=== PATIENT | male | born 1970 | race Two or more races ===

== ENCOUNTER 2023-03-22 18:14 | Inpatient (IN) | payer OTHER ==
[2023-03-22 19:01] VITALS: BMI 27.4
[2023-03-22] MEDS ORDERED: BENZOCAINE/MENTHOL (CHLORASEPTIC ) LOZENGE MM PRN (21:02)
[2023-03-22] MEDS ORDERED: BENZONATATE 200 MG CAPSULE PO PRN (21:02)
[2023-03-22] MEDS ORDERED: DICYCLOMINE HCL 10 MG CAPSULE PO PRN (21:02)
[2023-03-22] MEDS ORDERED: P-EPHED 60MG/TRIPROLIDI 2.5MG TABLET PO PRN (21:02)
[2023-03-22] MEDS ORDERED: MELATONIN 5 MG TABLETS PO PRN (21:02)
[2023-03-22] MEDS ORDERED: LOPERAMIDE HCL 2 MG CAPSULE PO PRN (21:02)
[2023-03-22] MEDS ORDERED: ONDANSETRON *ODT* 4 MG TABLET SL PRN (21:02)
[2023-03-22] MEDS ORDERED: MAGNESIUM HYDROX 2400MG/30ML ORAL SUSPENSION 30 ML CUP PO PRN (21:02)
[2023-03-22] MEDS ORDERED: ACETAMINOPHEN 325 MG TABLET (FP) PO PRN ×2 (21:02)
[2023-03-22] MEDS ORDERED: BISMUTH SUBSALICYLATE 524 MG/30 ML PO PRN (21:02)
[2023-03-22] MEDS ORDERED: POLYETHYLENE GLYCOL (HEALTHYLAX) 3350 17 GM PACKET PO PRN (21:02)
[2023-03-22] MEDS ORDERED: guaiFENesin 600 MG TABLET.ER (FP) PO PRN (21:02)
[2023-03-22] MEDS: GABAPENTIN 300 MG CAPSULE PO SCH (23:45)
[2023-03-22] MEDS: amLODIPine BESYLATE 5 MG TABLET (FP) PO SCH (23:50)
[2023-03-23] MEDS: THIAMINE HCL 100 MG TABLET (FP) PO SCH ×2 (07:22→21:17)
[2023-03-23] MEDS: ASPIRIN COATED 81 MG TABLET.EC PO SCH ×2 (07:23→09:40)
[2023-03-23] MEDS ORDERED: amLODIPine BESYLATE 5 MG TABLET (FP) ONE (07:26)
[2023-03-23] MEDS ORDERED: GABAPENTIN 100 MG CAPSULE ONE (07:26)
[2023-03-23] MEDS: GABAPENTIN 300 MG CAPSULE PO SCH ×3 (07:30→21:18)
[2023-03-23] MEDS: ATORVASTATIN CA 10 MG TABLET (FP) PO SCH ×2 (07:31→21:18)
[2023-03-23] MEDS ORDERED: ASPIRIN 81 MG CHEWABLE TABLETS ONE (09:33)
[2023-03-23] MEDS ORDERED: PRENATAL VITAMINS W/ FOLIC ACID TABLET (FP) PO ONE (09:34)
[2023-03-23] MEDS: PRENATAL VITAMINS W/ FOLIC ACID TABLET (FP) PO SCH (09:39)
[2023-03-23] MEDS: FAMOTIDINE 20 MG TABLET PO SCH (09:40)
[2023-03-23] MEDS: amLODIPine BESYLATE 5 MG TABLET (FP) PO SCH (09:40)
[2023-03-23] MEDS: metoPROLOL SUCCINATE 25 MG TAB.SR.24H (FP) PO SCH (09:40)
[2023-03-23] MEDS: IBUPROFEN 400 MG TABLET (FP) PO PRN (17:10)
[2023-03-23 17:28] LABS: POTASSIUM 4.8 mmol/L (3.5-5.1)
[2023-03-23 17:30] LABS: BLOOD UREA NITROGEN 21.5 mg/dL (7-18); CALCIUM 10.1 mg/dL (8.5-10.1)
[2023-03-23 17:34] LABS: CREATININE 1.4 mg/dL (0.55-1.3)
[2023-03-23 17:35] LABS: BILIRUBIN,TOTAL 0.4 mg/dL (0.2-1)
[2023-03-23 17:38] LABS: HEMATOCRIT 39.5 % (35.4-49); HEMOGLOBIN 12.9 GM/dL (11.7-16.9); MCHC 32.8 g/dl (32.0-35.9); MEAN CELL VOLUME 94.6 fl (80-96); MEAN PLT VOLUME 8.5 fl (7.5-11.1); PLATELET COUNT 398 10^3/uL (134-434); RBC 4.17 M/mm3 (4.00-5.60); RDW 13.9 % (11.9-15.9); WHITE BLOOD COUNT 8.4 K/mm3 (4.0-10.0)
[2023-03-23] MEDS: traZODone HCL 50 MG TABLET (FP) PO SCH (21:18)
[2023-03-24] MEDS: GABAPENTIN 300 MG CAPSULE PO SCH ×3 (06:05→21:46)
[2023-03-24] MEDS: hydrOXYzine PAMOATE 25 MG CAPSULE (FP) PO PRN (06:05)
[2023-03-24] MEDS: IBUPROFEN 400 MG TABLET (FP) PO PRN (07:53)
[2023-03-24] MEDS: FAMOTIDINE 20 MG TABLET PO SCH (09:48)
[2023-03-24] MEDS: PRENATAL VITAMINS W/ FOLIC ACID TABLET (FP) PO SCH (09:48)
[2023-03-24] MEDS: ASPIRIN COATED 81 MG TABLET.EC PO SCH (09:48)
[2023-03-24] MEDS: amLODIPine BESYLATE 5 MG TABLET (FP) PO SCH (09:48)
[2023-03-24] MEDS: metoPROLOL SUCCINATE 25 MG TAB.SR.24H (FP) PO SCH (09:48)
[2023-03-24] MEDS: traZODone HCL 50 MG TABLET (FP) PO SCH (21:46)
[2023-03-24] MEDS: THIAMINE HCL 100 MG TABLET (FP) PO SCH (21:46)
[2023-03-24] MEDS: ATORVASTATIN CA 10 MG TABLET (FP) PO SCH (21:47)
[2023-03-25] MEDS: hydrOXYzine PAMOATE 25 MG CAPSULE (FP) PO PRN (05:54)
[2023-03-25] MEDS: IBUPROFEN 400 MG TABLET (FP) PO PRN (05:55)
[2023-03-25] MEDS: GABAPENTIN 300 MG CAPSULE PO SCH ×3 (05:57→21:05)
[2023-03-25] MEDS: FAMOTIDINE 20 MG TABLET PO SCH (09:53)
[2023-03-25] MEDS: ASPIRIN COATED 81 MG TABLET.EC PO SCH (09:53)
[2023-03-25] MEDS: PRENATAL VITAMINS W/ FOLIC ACID TABLET (FP) PO SCH (09:53)
[2023-03-25] MEDS: metoPROLOL SUCCINATE 25 MG TAB.SR.24H (FP) PO SCH (09:53)
[2023-03-25] MEDS: amLODIPine BESYLATE 5 MG TABLET (FP) PO SCH (09:54)
[2023-03-25] MEDS: MAG HYDROX/AL HYDROX/SIMETH 30 ML UNIT-DOSE CUP PO PRN (12:13)
[2023-03-25] MEDS: traZODone HCL 50 MG TABLET (FP) PO SCH (21:05)
[2023-03-25] MEDS: ATORVASTATIN CA 10 MG TABLET (FP) PO SCH (21:05)
[2023-03-25] MEDS: THIAMINE HCL 100 MG TABLET (FP) PO SCH (21:05)
[2023-03-26] MEDS: hydrOXYzine PAMOATE 25 MG CAPSULE (FP) PO PRN (06:19)
[2023-03-26] MEDS: GABAPENTIN 300 MG CAPSULE PO SCH ×3 (06:19→21:15)
[2023-03-26] MEDS: PRENATAL VITAMINS W/ FOLIC ACID TABLET (FP) PO SCH (10:04)
[2023-03-26] MEDS: ASPIRIN COATED 81 MG TABLET.EC PO SCH (10:05)
[2023-03-26] MEDS: FAMOTIDINE 20 MG TABLET PO SCH (10:05)
[2023-03-26] MEDS: amLODIPine BESYLATE 5 MG TABLET (FP) PO SCH (10:05)
[2023-03-26] MEDS: metoPROLOL SUCCINATE 25 MG TAB.SR.24H (FP) PO SCH (10:05)
[2023-03-26] MEDS: MAG HYDROX/AL HYDROX/SIMETH 30 ML UNIT-DOSE CUP PO PRN (10:08)
[2023-03-26] MEDS ORDERED: METOPROLOL TARTRATE 25 MG TABLET (FP) PO SCH (10:30)
[2023-03-26] MEDS: ATORVASTATIN CA 10 MG TABLET (FP) PO SCH (21:15)
[2023-03-26] MEDS: THIAMINE HCL 100 MG TABLET (FP) PO SCH (21:15)
[2023-03-26] MEDS: traZODone HCL 50 MG TABLET (FP) PO SCH (21:15)
[2023-03-26] MEDS: METOPROLOL TARTRATE 25 MG TABLET (FP) PO SCH (21:30)
[2023-03-27] MEDS: GABAPENTIN 300 MG CAPSULE PO SCH ×3 (06:05→21:21)
[2023-03-27] MEDS: ASPIRIN COATED 81 MG TABLET.EC PO SCH (10:44)
[2023-03-27] MEDS: amLODIPine BESYLATE 5 MG TABLET (FP) PO SCH (10:44)
[2023-03-27] MEDS: FAMOTIDINE 20 MG TABLET PO SCH (10:45)
[2023-03-27] MEDS: PRENATAL VITAMINS W/ FOLIC ACID TABLET (FP) PO SCH (10:45)
[2023-03-27] MEDS: METOPROLOL TARTRATE 25 MG TABLET (FP) PO SCH ×2 (10:45→21:21)
[2023-03-27] MEDS: traZODone HCL 50 MG TABLET (FP) PO SCH (21:21)
[2023-03-27] MEDS: ATORVASTATIN CA 10 MG TABLET (FP) PO SCH (21:21)
[2023-03-27] MEDS: THIAMINE HCL 100 MG TABLET (FP) PO SCH (21:21)
[2023-03-28] MEDS: hydrOXYzine PAMOATE 25 MG CAPSULE (FP) PO PRN (05:58)
[2023-03-28] MEDS: GABAPENTIN 300 MG CAPSULE PO SCH ×3 (05:58→21:15)
[2023-03-28] MEDS: ASPIRIN COATED 81 MG TABLET.EC PO SCH (09:48)
[2023-03-28] MEDS: PRENATAL VITAMINS W/ FOLIC ACID TABLET (FP) PO SCH (09:48)
[2023-03-28] MEDS: amLODIPine BESYLATE 5 MG TABLET (FP) PO SCH (09:48)
[2023-03-28] MEDS: FAMOTIDINE 20 MG TABLET PO SCH (09:48)
[2023-03-28] MEDS: METOPROLOL TARTRATE 25 MG TABLET (FP) PO SCH ×2 (09:48→21:15)
[2023-03-28] MEDS: traZODone HCL 50 MG TABLET (FP) PO SCH (21:15)
[2023-03-28] MEDS: ATORVASTATIN CA 10 MG TABLET (FP) PO SCH (21:15)
[2023-03-28] MEDS: THIAMINE HCL 100 MG TABLET (FP) PO SCH (21:15)
[2023-03-29] MEDS: GABAPENTIN 300 MG CAPSULE PO SCH ×3 (05:51→21:27)
[2023-03-29] MEDS: ASPIRIN COATED 81 MG TABLET.EC PO SCH (10:21)
[2023-03-29] MEDS: FAMOTIDINE 20 MG TABLET PO SCH (10:21)
[2023-03-29] MEDS: PRENATAL VITAMINS W/ FOLIC ACID TABLET (FP) PO SCH (10:21)
[2023-03-29] MEDS: amLODIPine BESYLATE 5 MG TABLET (FP) PO SCH (10:22)
[2023-03-29] MEDS: METOPROLOL TARTRATE 25 MG TABLET (FP) PO SCH ×2 (10:22→21:27)
[2023-03-29] MEDS: THIAMINE HCL 100 MG TABLET (FP) PO SCH (21:26)
[2023-03-29] MEDS: traZODone HCL 50 MG TABLET (FP) PO SCH (21:27)
[2023-03-29] MEDS: IBUPROFEN 400 MG TABLET (FP) PO PRN (21:27)
[2023-03-29] MEDS: ATORVASTATIN CA 10 MG TABLET (FP) PO SCH (21:27)
[2023-03-30] MEDS: IBUPROFEN 400 MG TABLET (FP) PO PRN (06:12)
[2023-03-30] MEDS: GABAPENTIN 300 MG CAPSULE PO SCH ×3 (06:12→21:26)
[2023-03-30] MEDS: ASPIRIN COATED 81 MG TABLET.EC PO SCH (09:46)
[2023-03-30] MEDS: METOPROLOL TARTRATE 25 MG TABLET (FP) PO SCH ×2 (09:46→21:26)
[2023-03-30] MEDS: PRENATAL VITAMINS W/ FOLIC ACID TABLET (FP) PO SCH (09:46)
[2023-03-30] MEDS: FAMOTIDINE 20 MG TABLET PO SCH (09:46)
[2023-03-30] MEDS: amLODIPine BESYLATE 5 MG TABLET (FP) PO SCH (09:46)
[2023-03-30] MEDS: hydrOXYzine PAMOATE 25 MG CAPSULE (FP) PO PRN (13:21)
[2023-03-30] MEDS: ATORVASTATIN CA 10 MG TABLET (FP) PO SCH (21:26)
[2023-03-30] MEDS: traZODone HCL 50 MG TABLET (FP) PO SCH (21:26)
[2023-03-30] MEDS: THIAMINE HCL 100 MG TABLET (FP) PO SCH (21:27)
[2023-03-30] MEDS: MAG HYDROX/AL HYDROX/SIMETH 30 ML UNIT-DOSE CUP PO PRN (21:27)
[2023-03-31] MEDS: GABAPENTIN 300 MG CAPSULE PO SCH ×3 (05:52→21:14)
[2023-03-31] MEDS: hydrOXYzine PAMOATE 25 MG CAPSULE (FP) PO PRN (05:53)
[2023-03-31] MEDS: ASPIRIN COATED 81 MG TABLET.EC PO SCH (09:27)
[2023-03-31] MEDS: METOPROLOL TARTRATE 25 MG TABLET (FP) PO SCH ×2 (09:27→21:14)
[2023-03-31] MEDS: amLODIPine BESYLATE 5 MG TABLET (FP) PO SCH (09:27)
[2023-03-31] MEDS: PRENATAL VITAMINS W/ FOLIC ACID TABLET (FP) PO SCH (09:27)
[2023-03-31] MEDS: FAMOTIDINE 20 MG TABLET PO SCH (09:28)
[2023-03-31] MEDS: ATORVASTATIN CA 10 MG TABLET (FP) PO SCH (21:14)
[2023-03-31] MEDS: THIAMINE HCL 100 MG TABLET (FP) PO SCH (21:14)
[2023-03-31] MEDS: traZODone HCL 50 MG TABLET (FP) PO SCH (21:14)
[2023-04-01] MEDS: GABAPENTIN 300 MG CAPSULE PO SCH ×3 (06:04→21:28)
[2023-04-01] MEDS: hydrOXYzine PAMOATE 25 MG CAPSULE (FP) PO PRN (06:04)
[2023-04-01] MEDS: IBUPROFEN 400 MG TABLET (FP) PO PRN (06:25)
[2023-04-01] MEDS: ASPIRIN COATED 81 MG TABLET.EC PO SCH (09:54)
[2023-04-01] MEDS: amLODIPine BESYLATE 5 MG TABLET (FP) PO SCH (09:54)
[2023-04-01] MEDS: PRENATAL VITAMINS W/ FOLIC ACID TABLET (FP) PO SCH (09:54)
[2023-04-01] MEDS: METOPROLOL TARTRATE 25 MG TABLET (FP) PO SCH ×2 (09:54→21:28)
[2023-04-01] MEDS: FAMOTIDINE 20 MG TABLET PO SCH (09:54)
[2023-04-01] MEDS: MAG HYDROX/AL HYDROX/SIMETH 30 ML UNIT-DOSE CUP PO PRN (13:40)
[2023-04-01] MEDS: THIAMINE HCL 100 MG TABLET (FP) PO SCH (21:27)
[2023-04-01] MEDS: ATORVASTATIN CA 10 MG TABLET (FP) PO SCH (21:27)
[2023-04-01] MEDS: traZODone HCL 50 MG TABLET (FP) PO SCH (21:28)
[2023-04-02] MEDS: GABAPENTIN 300 MG CAPSULE PO SCH ×3 (06:19→21:31)
[2023-04-02] MEDS: hydrOXYzine PAMOATE 25 MG CAPSULE (FP) PO PRN (06:19)
[2023-04-02] MEDS: IBUPROFEN 400 MG TABLET (FP) PO PRN ×2 (06:19→13:22)
[2023-04-02] MEDS: FAMOTIDINE 20 MG TABLET PO SCH (09:58)
[2023-04-02] MEDS: ASPIRIN COATED 81 MG TABLET.EC PO SCH (09:58)
[2023-04-02] MEDS: PRENATAL VITAMINS W/ FOLIC ACID TABLET (FP) PO SCH (09:58)
[2023-04-02] MEDS: amLODIPine BESYLATE 5 MG TABLET (FP) PO SCH (09:58)
[2023-04-02] MEDS: METOPROLOL TARTRATE 25 MG TABLET (FP) PO SCH ×2 (09:58→21:31)
[2023-04-02] MEDS: ATORVASTATIN CA 10 MG TABLET (FP) PO SCH (21:31)
[2023-04-02] MEDS: traZODone HCL 50 MG TABLET (FP) PO SCH (21:31)
[2023-04-02] MEDS: THIAMINE HCL 100 MG TABLET (FP) PO SCH (21:31)
[2023-04-03] MEDS: GABAPENTIN 300 MG CAPSULE PO SCH ×3 (06:04→21:48)
[2023-04-03] MEDS: hydrOXYzine PAMOATE 25 MG CAPSULE (FP) PO PRN (06:04)
[2023-04-03] MEDS: IBUPROFEN 400 MG TABLET (FP) PO PRN (06:05)
[2023-04-03 07:29] VITALS: RESP 18
[2023-04-03] MEDS: FAMOTIDINE 20 MG TABLET PO SCH (09:57)
[2023-04-03] MEDS: METOPROLOL TARTRATE 25 MG TABLET (FP) PO SCH ×2 (09:57→21:48)
[2023-04-03] MEDS: amLODIPine BESYLATE 5 MG TABLET (FP) PO SCH (09:57)
[2023-04-03] MEDS: PRENATAL VITAMINS W/ FOLIC ACID TABLET (FP) PO SCH (09:57)
[2023-04-03] MEDS: ASPIRIN COATED 81 MG TABLET.EC PO SCH (09:57)
[2023-04-03] MEDS: ATORVASTATIN CA 10 MG TABLET (FP) PO SCH (21:48)
[2023-04-03] MEDS: traZODone HCL 50 MG TABLET (FP) PO SCH (21:48)
[2023-04-03] MEDS: THIAMINE HCL 100 MG TABLET (FP) PO SCH (21:49)
[2023-04-04] MEDS: GABAPENTIN 300 MG CAPSULE PO SCH ×3 (06:12→21:19)
[2023-04-04] MEDS: MAG HYDROX/AL HYDROX/SIMETH 30 ML UNIT-DOSE CUP PO PRN (06:50)
[2023-04-04] MEDS: ASPIRIN COATED 81 MG TABLET.EC PO SCH (10:08)
[2023-04-04] MEDS: PRENATAL VITAMINS W/ FOLIC ACID TABLET (FP) PO SCH (10:08)
[2023-04-04] MEDS: FAMOTIDINE 20 MG TABLET PO SCH (10:08)
[2023-04-04] MEDS: METOPROLOL TARTRATE 25 MG TABLET (FP) PO SCH ×2 (10:08→21:19)
[2023-04-04] MEDS: amLODIPine BESYLATE 5 MG TABLET (FP) PO SCH (10:08)
[2023-04-04] MEDS: ATORVASTATIN CA 10 MG TABLET (FP) PO SCH (21:19)
[2023-04-04] MEDS: THIAMINE HCL 100 MG TABLET (FP) PO SCH (21:19)
[2023-04-04] MEDS: traZODone HCL 50 MG TABLET (FP) PO SCH (21:19)
[2023-04-05] MEDS: MAG HYDROX/AL HYDROX/SIMETH 30 ML UNIT-DOSE CUP PO PRN (06:21)
[2023-04-05] MEDS: GABAPENTIN 300 MG CAPSULE PO SCH ×3 (06:21→21:10)
[2023-04-05] MEDS: METOPROLOL TARTRATE 25 MG TABLET (FP) PO SCH ×2 (10:08→21:10)
[2023-04-05] MEDS: ASPIRIN COATED 81 MG TABLET.EC PO SCH (10:08)
[2023-04-05] MEDS: FAMOTIDINE 20 MG TABLET PO SCH (10:08)
[2023-04-05] MEDS: amLODIPine BESYLATE 5 MG TABLET (FP) PO SCH (10:08)
[2023-04-05] MEDS: PRENATAL VITAMINS W/ FOLIC ACID TABLET (FP) PO SCH (10:08)
[2023-04-05] MEDS: THIAMINE HCL 100 MG TABLET (FP) PO SCH (21:10)
[2023-04-05] MEDS: ATORVASTATIN CA 10 MG TABLET (FP) PO SCH (21:10)
[2023-04-05] MEDS: traZODone HCL 50 MG TABLET (FP) PO SCH (21:11)
[2023-04-06] MEDS: GABAPENTIN 300 MG CAPSULE PO SCH ×3 (05:42→21:18)
[2023-04-06] MEDS: hydrOXYzine PAMOATE 25 MG CAPSULE (FP) PO PRN (05:42)
[2023-04-06] MEDS: METOPROLOL TARTRATE 25 MG TABLET (FP) PO SCH ×2 (10:14→21:18)
[2023-04-06] MEDS: ASPIRIN COATED 81 MG TABLET.EC PO SCH (10:14)
[2023-04-06] MEDS: PRENATAL VITAMINS W/ FOLIC ACID TABLET (FP) PO SCH (10:14)
[2023-04-06] MEDS: FAMOTIDINE 20 MG TABLET PO SCH (10:14)
[2023-04-06] MEDS: amLODIPine BESYLATE 5 MG TABLET (FP) PO SCH (10:14)
[2023-04-06] MEDS: IBUPROFEN 400 MG TABLET (FP) PO PRN (10:16)
[2023-04-06] MEDS: ATORVASTATIN CA 10 MG TABLET (FP) PO SCH (21:18)
[2023-04-06] MEDS: THIAMINE HCL 100 MG TABLET (FP) PO SCH (21:18)
[2023-04-06] MEDS: traZODone HCL 50 MG TABLET (FP) PO SCH (21:18)
[2023-04-07] MEDS: GABAPENTIN 300 MG CAPSULE PO SCH ×3 (06:12→21:02)
[2023-04-07] MEDS: FAMOTIDINE 20 MG TABLET PO SCH (10:01)
[2023-04-07] MEDS: PRENATAL VITAMINS W/ FOLIC ACID TABLET (FP) PO SCH (10:01)
[2023-04-07] MEDS: amLODIPine BESYLATE 5 MG TABLET (FP) PO SCH (10:02)
[2023-04-07] MEDS: METOPROLOL TARTRATE 25 MG TABLET (FP) PO SCH ×2 (10:02→21:02)
[2023-04-07] MEDS: ASPIRIN COATED 81 MG TABLET.EC PO SCH (10:02)
[2023-04-07] MEDS: IBUPROFEN 400 MG TABLET (FP) PO PRN (13:07)
[2023-04-07] MEDS: traZODone HCL 50 MG TABLET (FP) PO SCH (21:02)
[2023-04-07] MEDS: ATORVASTATIN CA 10 MG TABLET (FP) PO SCH (21:02)
[2023-04-07] MEDS: THIAMINE HCL 100 MG TABLET (FP) PO SCH (21:03)
[2023-04-08] MEDS: GABAPENTIN 300 MG CAPSULE PO SCH ×3 (06:01→21:19)
[2023-04-08] MEDS: IBUPROFEN 400 MG TABLET (FP) PO PRN (06:03)
[2023-04-08] MEDS: amLODIPine BESYLATE 5 MG TABLET (FP) PO SCH (10:12)
[2023-04-08] MEDS: PRENATAL VITAMINS W/ FOLIC ACID TABLET (FP) PO SCH (10:12)
[2023-04-08] MEDS: METOPROLOL TARTRATE 25 MG TABLET (FP) PO SCH ×2 (10:12→21:19)
[2023-04-08] MEDS: ASPIRIN COATED 81 MG TABLET.EC PO SCH (10:12)
[2023-04-08] MEDS: FAMOTIDINE 20 MG TABLET PO SCH (10:12)
[2023-04-08] MEDS: MAG HYDROX/AL HYDROX/SIMETH 30 ML UNIT-DOSE CUP PO PRN (10:13)
[2023-04-08] MEDS: THIAMINE HCL 100 MG TABLET (FP) PO SCH (21:18)
[2023-04-08] MEDS: ATORVASTATIN CA 10 MG TABLET (FP) PO SCH (21:19)
[2023-04-08] MEDS: traZODone HCL 50 MG TABLET (FP) PO SCH (21:19)
[2023-04-09] MEDS: IBUPROFEN 400 MG TABLET (FP) PO PRN (06:17)
[2023-04-09] MEDS: GABAPENTIN 300 MG CAPSULE PO SCH ×3 (06:17→21:16)
[2023-04-09] MEDS: hydrOXYzine PAMOATE 25 MG CAPSULE (FP) PO PRN (06:19)
[2023-04-09] MEDS: ASPIRIN COATED 81 MG TABLET.EC PO SCH (10:07)
[2023-04-09] MEDS: amLODIPine BESYLATE 5 MG TABLET (FP) PO SCH (10:07)
[2023-04-09] MEDS: FAMOTIDINE 20 MG TABLET PO SCH (10:07)
[2023-04-09] MEDS: METOPROLOL TARTRATE 25 MG TABLET (FP) PO SCH ×2 (10:07→21:16)
[2023-04-09] MEDS: PRENATAL VITAMINS W/ FOLIC ACID TABLET (FP) PO SCH (10:07)
[2023-04-09] MEDS: LIDOCAINE 5% TOPICAL PATCH TP SCH (11:04)
[2023-04-09] MEDS: amLODIPine BESYLATE 10 MG TABLET (FP) PO SCH (11:04)
[2023-04-09] MEDS: NICOTINE 14 MG/24 HOURS TOPICAL PATCH TD PRN (11:06)
[2023-04-09] MEDS: ATORVASTATIN CA 10 MG TABLET (FP) PO SCH (21:16)
[2023-04-09] MEDS: traZODone HCL 50 MG TABLET (FP) PO SCH (21:16)
[2023-04-09] MEDS: THIAMINE HCL 100 MG TABLET (FP) PO SCH (21:17)
[2023-04-09] MEDS: LIDOCAINE PATCH REMOVAL MC SCH (21:17)
[2023-04-10] MEDS: GABAPENTIN 300 MG CAPSULE PO SCH ×3 (05:41→21:21)
[2023-04-10] MEDS: IBUPROFEN 400 MG TABLET (FP) PO PRN ×2 (05:42→13:17)
[2023-04-10] MEDS: LIDOCAINE 5% TOPICAL PATCH TP SCH (10:08)
[2023-04-10] MEDS: METOPROLOL TARTRATE 25 MG TABLET (FP) PO SCH ×2 (10:08→21:21)
[2023-04-10] MEDS: FAMOTIDINE 20 MG TABLET PO SCH (10:09)
[2023-04-10] MEDS: PRENATAL VITAMINS W/ FOLIC ACID TABLET (FP) PO SCH (10:09)
[2023-04-10] MEDS: amLODIPine BESYLATE 10 MG TABLET (FP) PO SCH (10:09)
[2023-04-10] MEDS: ASPIRIN COATED 81 MG TABLET.EC PO SCH (10:09)
[2023-04-10] MEDS: NICOTINE 14 MG/24 HOURS TOPICAL PATCH TD PRN (10:11)
[2023-04-10] MEDS: ATORVASTATIN CA 10 MG TABLET (FP) PO SCH (21:21)
[2023-04-10] MEDS: LIDOCAINE PATCH REMOVAL MC SCH (21:21)
[2023-04-10] MEDS: traZODone HCL 50 MG TABLET (FP) PO SCH (21:21)
[2023-04-10] MEDS: THIAMINE HCL 100 MG TABLET (FP) PO SCH (21:21)
[2023-04-11] MEDS: GABAPENTIN 300 MG CAPSULE PO SCH ×3 (06:05→21:12)
[2023-04-11] MEDS: MAG HYDROX/AL HYDROX/SIMETH 30 ML UNIT-DOSE CUP PO PRN (06:06)
[2023-04-11] MEDS: FAMOTIDINE 20 MG TABLET PO SCH (09:59)
[2023-04-11] MEDS: PRENATAL VITAMINS W/ FOLIC ACID TABLET (FP) PO SCH (09:59)
[2023-04-11] MEDS: METOPROLOL TARTRATE 25 MG TABLET (FP) PO SCH ×2 (09:59→21:12)
[2023-04-11] MEDS: amLODIPine BESYLATE 10 MG TABLET (FP) PO SCH (10:00)
[2023-04-11] MEDS: ASPIRIN COATED 81 MG TABLET.EC PO SCH (10:00)
[2023-04-11] MEDS: LIDOCAINE 5% TOPICAL PATCH TP SCH (10:00)
[2023-04-11] MEDS: NICOTINE 14 MG/24 HOURS TOPICAL PATCH TD PRN (10:01)
[2023-04-11] MEDS: ATORVASTATIN CA 10 MG TABLET (FP) PO SCH (21:12)
[2023-04-11] MEDS: THIAMINE HCL 100 MG TABLET (FP) PO SCH (21:12)
[2023-04-11] MEDS: LIDOCAINE PATCH REMOVAL MC SCH (21:12)
[2023-04-11] MEDS: traZODone HCL 50 MG TABLET (FP) PO SCH (21:12)
[2023-04-12] MEDS: GABAPENTIN 300 MG CAPSULE PO SCH ×3 (05:59→21:26)
[2023-04-12] MEDS: amLODIPine BESYLATE 10 MG TABLET (FP) PO SCH (10:04)
[2023-04-12] MEDS: ASPIRIN COATED 81 MG TABLET.EC PO SCH (10:04)
[2023-04-12] MEDS: METOPROLOL TARTRATE 25 MG TABLET (FP) PO SCH ×2 (10:04→21:26)
[2023-04-12] MEDS: PRENATAL VITAMINS W/ FOLIC ACID TABLET (FP) PO SCH (10:04)
[2023-04-12] MEDS: FAMOTIDINE 20 MG TABLET PO SCH (10:04)
[2023-04-12] MEDS: LIDOCAINE 5% TOPICAL PATCH TP SCH (10:05)
[2023-04-12] MEDS: NICOTINE 14 MG/24 HOURS TOPICAL PATCH TD PRN (10:06)
[2023-04-12] MEDS: IBUPROFEN 400 MG TABLET (FP) PO PRN (13:22)
[2023-04-12] MEDS: traZODone HCL 50 MG TABLET (FP) PO SCH (21:26)
[2023-04-12] MEDS: ATORVASTATIN CA 10 MG TABLET (FP) PO SCH (21:26)
[2023-04-12] MEDS: THIAMINE HCL 100 MG TABLET (FP) PO SCH (21:27)
[2023-04-12] MEDS: LIDOCAINE PATCH REMOVAL MC SCH (21:27)
[2023-04-13] MEDS: GABAPENTIN 300 MG CAPSULE PO SCH ×3 (06:35→21:36)
[2023-04-13] MEDS: IBUPROFEN 400 MG TABLET (FP) PO PRN ×2 (06:36→13:49)
[2023-04-13] MEDS: PRENATAL VITAMINS W/ FOLIC ACID TABLET (FP) PO SCH (10:21)
[2023-04-13] MEDS: LIDOCAINE 5% TOPICAL PATCH TP SCH (10:21)
[2023-04-13] MEDS: METOPROLOL TARTRATE 25 MG TABLET (FP) PO SCH ×2 (10:21→21:37)
[2023-04-13] MEDS: ASPIRIN COATED 81 MG TABLET.EC PO SCH (10:21)
[2023-04-13] MEDS: FAMOTIDINE 20 MG TABLET PO SCH (10:21)
[2023-04-13] MEDS: amLODIPine BESYLATE 10 MG TABLET (FP) PO SCH (10:21)
[2023-04-13] MEDS: NICOTINE 14 MG/24 HOURS TOPICAL PATCH TD PRN (11:37)
[2023-04-13] MEDS: traZODone HCL 50 MG TABLET (FP) PO SCH (21:36)
[2023-04-13] MEDS: THIAMINE HCL 100 MG TABLET (FP) PO SCH (21:36)
[2023-04-13] MEDS: ATORVASTATIN CA 10 MG TABLET (FP) PO SCH (21:37)
[2023-04-13] MEDS: LIDOCAINE PATCH REMOVAL MC SCH (21:37)
[2023-04-14] MEDS: GABAPENTIN 300 MG CAPSULE PO SCH ×3 (06:55→21:15)
[2023-04-14] MEDS: IBUPROFEN 400 MG TABLET (FP) PO PRN ×2 (06:56→13:33)
[2023-04-14] MEDS: PRENATAL VITAMINS W/ FOLIC ACID TABLET (FP) PO SCH (09:48)
[2023-04-14] MEDS: amLODIPine BESYLATE 10 MG TABLET (FP) PO SCH (09:48)
[2023-04-14] MEDS: FAMOTIDINE 20 MG TABLET PO SCH (09:48)
[2023-04-14] MEDS: METOPROLOL TARTRATE 25 MG TABLET (FP) PO SCH ×2 (09:48→21:15)
[2023-04-14] MEDS: ASPIRIN COATED 81 MG TABLET.EC PO SCH (09:48)
[2023-04-14] MEDS: LIDOCAINE 5% TOPICAL PATCH TP SCH (09:49)
[2023-04-14] MEDS: ATORVASTATIN CA 10 MG TABLET (FP) PO SCH (21:15)
[2023-04-14] MEDS: LIDOCAINE PATCH REMOVAL MC SCH (21:15)
[2023-04-14] MEDS: traZODone HCL 50 MG TABLET (FP) PO SCH (21:15)
[2023-04-14] MEDS: THIAMINE HCL 100 MG TABLET (FP) PO SCH (21:15)
[2023-04-15] MEDS: GABAPENTIN 300 MG CAPSULE PO SCH ×3 (06:42→21:10)
[2023-04-15] MEDS: IBUPROFEN 400 MG TABLET (FP) PO PRN (06:43)
[2023-04-15] MEDS: METOPROLOL TARTRATE 25 MG TABLET (FP) PO SCH ×2 (09:36→21:10)
[2023-04-15] MEDS: amLODIPine BESYLATE 10 MG TABLET (FP) PO SCH (09:36)
[2023-04-15] MEDS: ASPIRIN COATED 81 MG TABLET.EC PO SCH (09:36)
[2023-04-15] MEDS: PRENATAL VITAMINS W/ FOLIC ACID TABLET (FP) PO SCH (09:36)
[2023-04-15] MEDS: FAMOTIDINE 20 MG TABLET PO SCH (09:36)
[2023-04-15] MEDS: LIDOCAINE 5% TOPICAL PATCH TP SCH (09:37)
[2023-04-15] MEDS: THIAMINE HCL 100 MG TABLET (FP) PO SCH (21:10)
[2023-04-15] MEDS: traZODone HCL 50 MG TABLET (FP) PO SCH (21:10)
[2023-04-15] MEDS: ATORVASTATIN CA 10 MG TABLET (FP) PO SCH (21:10)
[2023-04-15] MEDS: LIDOCAINE PATCH REMOVAL MC SCH (21:11)
[2023-04-16] MEDS: MAG HYDROX/AL HYDROX/SIMETH 30 ML UNIT-DOSE CUP PO PRN (00:13)
[2023-04-16] MEDS: GABAPENTIN 300 MG CAPSULE PO SCH ×3 (06:52→21:35)
[2023-04-16] MEDS: METOPROLOL TARTRATE 25 MG TABLET (FP) PO SCH ×2 (10:17→21:35)
[2023-04-16] MEDS: ASPIRIN COATED 81 MG TABLET.EC PO SCH (10:17)
[2023-04-16] MEDS: amLODIPine BESYLATE 10 MG TABLET (FP) PO SCH (10:17)
[2023-04-16] MEDS: FAMOTIDINE 20 MG TABLET PO SCH (10:17)
[2023-04-16] MEDS: LIDOCAINE 5% TOPICAL PATCH TP SCH (10:17)
[2023-04-16] MEDS: PRENATAL VITAMINS W/ FOLIC ACID TABLET (FP) PO SCH (10:17)
[2023-04-16] MEDS: THIAMINE HCL 100 MG TABLET (FP) PO SCH (21:35)
[2023-04-16] MEDS: traZODone HCL 50 MG TABLET (FP) PO SCH (21:35)
[2023-04-16] MEDS: ATORVASTATIN CA 10 MG TABLET (FP) PO SCH (21:35)
[2023-04-16] MEDS: LIDOCAINE PATCH REMOVAL MC SCH (21:36)
[2023-04-17] MEDS: GABAPENTIN 300 MG CAPSULE PO SCH ×3 (06:36→21:14)
[2023-04-17 07:06] VITALS: TEMP 97.3
[2023-04-17] MEDS: PRENATAL VITAMINS W/ FOLIC ACID TABLET (FP) PO SCH (09:43)
[2023-04-17] MEDS: ASPIRIN COATED 81 MG TABLET.EC PO SCH (09:43)
[2023-04-17] MEDS: FAMOTIDINE 20 MG TABLET PO SCH (09:43)
[2023-04-17] MEDS: LIDOCAINE 5% TOPICAL PATCH TP SCH (09:43)
[2023-04-17] MEDS: amLODIPine BESYLATE 10 MG TABLET (FP) PO SCH (09:43)
[2023-04-17] MEDS: METOPROLOL TARTRATE 25 MG TABLET (FP) PO SCH ×2 (09:43→21:14)
[2023-04-17] MEDS: IBUPROFEN 400 MG TABLET (FP) PO PRN (16:40)
[2023-04-17] MEDS: THIAMINE HCL 100 MG TABLET (FP) PO SCH (21:14)
[2023-04-17] MEDS: ATORVASTATIN CA 10 MG TABLET (FP) PO SCH (21:15)
[2023-04-17] MEDS: traZODone HCL 50 MG TABLET (FP) PO SCH (21:15)
[2023-04-17] MEDS: LIDOCAINE PATCH REMOVAL MC SCH (21:15)
[2023-04-18] MEDS: GABAPENTIN 300 MG CAPSULE PO SCH (06:40)
[2023-04-18] MEDS: ASPIRIN COATED 81 MG TABLET.EC PO SCH (09:11)
[2023-04-18] MEDS: PRENATAL VITAMINS W/ FOLIC ACID TABLET (FP) PO SCH (09:12)
[2023-04-18] MEDS: amLODIPine BESYLATE 10 MG TABLET (FP) PO SCH (09:12)
[2023-04-18] MEDS: METOPROLOL TARTRATE 25 MG TABLET (FP) PO SCH (09:12)
[2023-04-18] MEDS: LIDOCAINE 5% TOPICAL PATCH TP SCH (09:12)
[2023-04-18] MEDS: FAMOTIDINE 20 MG TABLET PO SCH (09:12)
[2023-04-18 09:17] VITALS: BP 134/62; PULSE 77
== END 2023-04-18 09:15 | disposition home or self-care (01) | DRG 772 ==
LOC: EDBD 18:14 → YASAS 18:14 → SUATTDRO 18:14 → Y3W 03-23 09:36
PROVIDERS: ADMIT Allergy & Immunology; ATTEND Psychiatry & Neurology Pain Medicine
PROC: HZ42ZZZ Group Counseling for Substance Abuse Treatment, Cognitive-Behavioral (ICD-10-PCS; principal; 2023-03-23)
DX: F10.20 Alcohol dependence, uncomplicated (principal); F17.210 Nicotine dependence, cigarettes, uncomplicated; F10.282 Alcohol dependence with alcohol-induced sleep disorder; F32.A Depression, unspecified; E78.5 Hyperlipidemia, unspecified; I25.10 Atherosclerotic heart disease of native coronary artery without angina pectoris; I10 Essential (primary) hypertension; I25.2 Old myocardial infarction; K21.9 Gastro-esophageal reflux disease without esophagitis; Z86.59 Personal history of other mental and behavioral disorders; Z59.01 Sheltered homelessness
CPT/HCPCS: 36415; 71046-TC-FY; 73630-TC-LT; 80053; 85027; 86780; 93005; 93010; C9803-CS; U0003; U0005